=== PATIENT | male | born 1985 | race Caucasian/White ===

== ENCOUNTER 2017-04-13 09:32 | Emergency (ER) | payer SELFPAY ==
[2017-04-13 09:46] VITALS: BP 127/74
== END 2017-04-13 11:07 | disposition home or self-care (01) ==
LOC: ED 09:32
DX: B34.9 Viral infection, unspecified (principal)
CPT/HCPCS: J1885

== ENCOUNTER 2018-12-02 05:32 | Emergency (ER) | payer MEDICAID ==
[~2018-12-02] VITALS: Ht 177.8 cm; Wt 124.3 kg
[2018-12-02 05:42] VITALS: Ht 177.8 cm; Wt 124.3 kg
[2018-12-02 06:10] LABS: BASOPHIL % 0.9 % (0-2); PLATELET COUNT 261 x10^3mcL (130-400); RED CELL DISTRIBUTION WIDTH 12.6 % (11.5-14.5)
[2018-12-02 06:40] LABS: microscopic required? NO
[2018-12-02 06:44] LABS: UA SPECIFIC GRAVITY >=1.030 (1.005-1.035); urine erythrocyte NEGATIVE (NEGATIVE)
[2018-12-02 06:59] LABS: CALCIUM 9.2 mg/dL (8.5-10.1); CARBON DIOXIDE 26.9 mmol/L (21-32); CHLORIDE SERUM 104 mmol/L (98-107); GFR1 > 60 mL/min; GLUCOSE SERUM 102 mg/dL (74-106); SODIUM SERUM 139 mmol/L (136-145)
[2018-12-02 07:04] LABS: ALKALINE PHOSPHATASE 61 U/L (46-116); ALT/SGPT 30 U/L (16-63); AST/SGOT 24 U/L (15-37); BILIRUBIN TOTAL 0.5 mg/dL (0.20-1.00); LIPASE 101 IU/L (73-393); TOTAL PROTEIN, SERUM 7.9 g/dL (6.4-8.2)
[2018-12-02 07:34] VITALS: BP 134/84
== END 2018-12-02 07:34 | disposition home or self-care (01) ==
LOC: ED 05:32
PROVIDERS: Emergency Medicine
DX: K80.70 Calculus of gallbladder and bile duct without cholecystitis without obstruction (principal)
CPT/HCPCS: J1885; Q0092

== ENCOUNTER 2019-01-18 03:04 | Emergency (ER) | payer MEDICAID ==
[~2019-01-18] VITALS: Ht 175.3 cm; Wt 125.6 kg
[2019-01-18 03:10] VITALS: Ht 175.3 cm; Wt 125.6 kg
[2019-01-18 03:32] LABS: BASOPHIL % 0.5 % (0-2); PLATELET COUNT 255 x10^3mcL (130-400); RED CELL DISTRIBUTION WIDTH 12.9 % (11.5-14.5)
[2019-01-18 03:59] LABS: CALCIUM 8.5 mg/dL (8.5-10.1); CARBON DIOXIDE 31.4 mmol/L (21-32); CHLORIDE SERUM 106 mmol/L (98-107); GFR1 > 60 mL/min; GLUCOSE SERUM 136 mg/dL (74-106); POTASSIUM SERUM 3.9 mmol/L (3.5-5.1); SODIUM SERUM 142 mmol/L (136-145)
[2019-01-18 04:03] LABS: ALBUMIN 3.6 g/dL (3.4-5.0); ALKALINE PHOSPHATASE 69 U/L (46-116); ALT/SGPT 23 U/L (16-63); AST/SGOT 14 U/L (15-37); BILIRUBIN TOTAL 0.38 mg/dL (0.20-1.00); LIPASE 102 IU/L (73-393); TOTAL PROTEIN, SERUM 7.3 g/dL (6.4-8.2)
[2019-01-18 05:03] VITALS: BP 100/56
== END 2019-01-18 05:22 | disposition home or self-care (01) ==
LOC: ED 03:04
PROVIDERS: Emergency Medicine
DX: K80.50 Calculus of bile duct without cholangitis or cholecystitis without obstruction (principal); Z87.19 Personal history of other diseases of the digestive system
CPT/HCPCS: J2270; J2405